=== PATIENT | female | born 1980 | race American Indian/Alaskan Native ===

== ENCOUNTER 2017-12-06 15:00 | Emergency (ER) | payer SELFPAY ==
[2017-12-06 15:12] VITALS: BP 145/64
[2017-12-06 17:55] LABS: HCG Qualitative,Urine Negative (Negative)
[2017-12-06] MEDS ORDERED: NORCO 5/325 PO ONE (17:57)
--- NOTE | 2017-12-06 17:58 | Emergency Department Report ---
ED Lower Extremity HPI - General Chief Complaint: Extremity Injury, Lower Stated Complaint: LEFT ANKLE PAIN Time Seen by Provider: 12/06/17 17:42 Source: patient Mode of arrival: Ambulatory Limitations: No Limitations - History of Present Illness Initial Comments: This is a 37-year-old -[place] female who presents with left ankle pain from falling this morning on stairs at home. Patient states she slipped on a staircase at home around 4:00 this morning. Patient states she is not sure if she twisted her ankle while falling. She is complaining of some swelling and pain with weightbearing and movement to medial ankle. Patient's patient is also having a burning sensation went from ankle to the top of her toes. Patient reports pain is 7 out of 10 on pain scale and worse with movement. MD Complaint: ankle injury (left ankle) -: This morning Injury: Ankle: Left Type of Injury: unknown Place: home Severity: severe Severity scale (0 -10): 10 Improves With: nothing Worsens With: weight bearing, movement, palpation Context: fall Associated Symptoms: snap/pop sensation, swelling, able to partially bear weight. denies: numbness, tingling, unable to bear weight, ambulatory - Related Data Previous Rx's Medication Instructions Recorded Last Taken Type tiZANidine [Zanaflex] 4 mg PO TID PRN #12 tablet 12/06/17 Unknown Rx traMADol [Ultram 50 MG tab] 50 mg PO Q6HR PRN #15 tablet 12/06/17 Unknown Rx Allergies Allergy/AdvReac Type Severity Reaction Status Date / Time ibuprofen Allergy Hives Verified 12/06/17 15:09 Penicillins Allergy Hives Verified 12/06/17 15:09 ED Review of Systems ROS: Stated complaint: LEFT ANKLE PAIN Other details as noted in HPI Constitutional: denies: chills, fever Respiratory: denies: cough, shortness of breath, wheezing Cardiovascular: denies: chest pain, palpitations Gastrointestinal: denies: abdominal pain, nausea, vomiting, diarrhea Musculoskeletal: joint swelling (left ankle), arthralgia (left ankle). denies: back pain Skin: denies: rash, lesions, change in color, change in hair/nails, pruritus Neurological: denies: headache, weakness, numbness, paresthesias Psychiatric: denies: anxiety, depression ED Past Medical Hx - Past Medical History Previous Medical History?: Yes Hx Asthma: Yes - Surgical History Past Surgical History?: No - Social History Smoking Status: Never Smoker Substance Use Type: None - Medications Home Medications: Home Medications Medication Instructions Recorded Confirmed Last Taken Type tiZANidine [Zanaflex] 4 mg PO TID PRN #12 tablet 12/06/17 Unknown Rx traMADol [Ultram 50 MG tab] 50 mg PO Q6HR PRN #15 tablet 12/06/17 Unknown Rx ED Physical Exam - General Limitations: No Limitations General appearance: alert, in no apparent distress - Respiratory Respiratory exam: Present: normal lung sounds bilaterally. Absent: respiratory distress - Cardiovascular Cardiovascular Exam: Present: regular rate, normal rhythm. Absent: systolic murmur, diastolic murmur, rubs, gallop - GI/Abdominal GI/Abdominal exam: Present: soft, normal bowel sounds. Absent: organomegaly, mass - Extremities Exam Extremities exam: Present: normal capillary refill. Absent: pedal edema, calf tenderness - Expanded Lower Extremity Exam Left Hip exam: Present: normal inspection, full ROM Upper Leg exam: Present: normal inspection, full ROM Knee exam: Present: normal inspection, full ROM Lower Leg exam: Present: normal inspection, full ROM Ankle exam: Present: tenderness, swelling (around lateral malleolus). Absent: full ROM (unable to tolerate range of motion secondary to pain), abrasion, laceration, ecchymosis, deformity, crepidus, dislocation, erythema, anterior draw sign Foot/Toe exam: Present: normal inspection, full ROM. Absent: tenderness, swelling, abrasion, laceration, ecchymosis, deformity, crepidus, erythema, amputation, puncture wound Neuro vascular tendon exam: Present: no vascular compromise Gait: Positive: unable to bear weight - Neurological Exam Neurological exam: Present: alert, oriented X3 - Psychiatric Psychiatric exam: Present: normal affect, normal mood - Skin Skin exam: Present: warm, dry, intact, normal color. Absent: rash ED Course Vital Signs 12/06/17 15:09 Temperature 99.6 F Pulse Rate 90 Respiratory 18 Rate Blood Pressure 145/64 O2 Sat by Pulse 99 Oximetry ED Lower Extremity MDM - Radiology Data Radiology results: report reviewed, image reviewed FINAL REPORT EXAM: XR ANKLE 3+V LT HISTORY: pain/swelling after fall TECHNIQUE: AP, lateral, and oblique views of the left ankle PRIORS: None. FINDINGS: There is no evidence for acute fracture or dislocation. Generalized soft tissue swelling around the ankle is seen, particularly the lateral malleolus. No radiopaque foreign bodies are seen. The ankle mortise is intact. Bony mineralization is normal and joint spaces are maintained. Spurring off the plantar aspect of the calcaneus is noted. Doubt IMPRESSION: No acute bony abnormality noted. Soft tissue swelling around the ankle. - Medical Decision Making This is a 37 y.o. female presents with left ankle pain from slip and fall this morning. Patient was examined by me. Vitals are normal and patient is in no acute distress. Obtained a urine test and x-ray of left ankle. Urine test negative. X-rays dictated by radiologist and No acute bony abnormality noted. Soft tissue swelling around the ankle. Patient informed of results. Rupesh wrap applied to the left ankle and patient given crutches with education. Patient instructed to slowly apply weight bearing as tolerated. Referrals to orthopedic surgery if symptoms are not improving as discussed. Start tramadol and Zanaflex for pain from muscles sprain. Plan discussed with patient to discharge home and treat outpatient. Patient discharged home in stable condition. Follow up with PCP in 2-3 days. Critical care attestation.: If time is entered above; I have spent that time in minutes in the direct care of this critically ill patient, excluding procedure time. ED Disposition Clinical Impression: Acute left ankle pain Sprain of ankle, left Qualifiers: Encounter type: initial encounter Involved ligament of ankle: unspecified ligament Qualified Code(s): S93.402A - Sprain of unspecified ligament of left ankle, initial encounter Disposition: TO HOME OR SELFCARE Is pt being admited?: No Does the pt Need Aspirin: No Condition: Stable Instructions: Ankle Sprain (ED), Arthralgia (ED) Additional Instructions: Rest Use ice or heat on affected area for 20 minutes and off for 2 hours. Take pain medication as needed for pain. Don't drive or operate heavy machinery while taking muscle relaxers because they may cause drowsiness. Follow up with orthopedic surgery if symptoms are not improving as discussed. Follow up with Primary Care Provider in 2-3 days. Prescriptions: tiZANidine [Zanaflex] 4 mg PO TID PRN #12 tablet PRN Reason: Muscle Spasm traMADol [Ultram 50 MG tab] 50 mg PO Q6HR PRN #15 tablet PRN Reason: Pain Referrals: [facility] [Outside] - 3-5 Days [facility] [Outside] - 3-5 Days RAAD JONES MD [Staff Physician] - 3-5 Days Time of Disposition: 18:51 Print Language: WOLOF
--- NOTE | 2017-12-06 18:21 | XRay Report ---
FINAL REPORT EXAM: XR ANKLE 3+V LT HISTORY: pain/swelling after fall TECHNIQUE: AP, lateral, and oblique views of the left ankle PRIORS: None. FINDINGS: There is no evidence for acute fracture or dislocation. Generalized soft tissue swelling around the ankle is seen, particularly the lateral malleolus. No radiopaque foreign bodies are seen. The ankle mortise is intact. Bony mineralization is normal and joint spaces are maintained. Spurring off the plantar aspect of the calcaneus is noted. Doubt IMPRESSION: No acute bony abnormality noted. Soft tissue swelling around the ankle.
== END 2017-12-06 19:14 | disposition home or self-care (01) ==
LOC: ED 15:00
DX: S93.402A Sprain of unspecified ligament of left ankle, initial encounter (principal); J45.909 Unspecified asthma, uncomplicated; Z88.6 Allergy status to analgesic agent; Z88.0 Allergy status to penicillin; W01.0XXA Fall on same level from slipping, tripping and stumbling without subsequent striking against object, initial encounter; Y93.89 Activity, other specified; Y99.8 Other external cause status; Y92.098 Other place in other non-institutional residence as the place of occurrence of the external cause
CPT/HCPCS: 81025